=== PATIENT | male | born 1955 | race Caucasian/White ===

== ENCOUNTER 2024-10-27 08:53 | Emergency (ER) | payer MEDICARE ==
[~2024-10-27] VITALS: Ht 167.6 cm; Wt 76.2 kg
[2024-10-27 08:57] VITALS: O2SAT 100
[2024-10-27 08:58] VITALS: TEMP 36.9; O2SAT 96
[2024-10-27 09:48] LABS: HEMATOCRIT. 43.5 % (42.0-52.0); HEMOGLOBIN. 14.2 g/dL (14.0-18.0); MEAN CORPUSCULAR HEMOGLOBIN 29.1 pg (28.0-32.0); MEAN CORPUSCULAR HGB CONC 32.6 g/dL (31.0-37.0); MEAN CORPUSCULAR VOLUME 89.3 fL (80.0-94.0); MEAN PLATELET VOLUME 7.7 fl (7.4-10.4); PLATELET 203 x1000/uL (130-400); RED BLOOD CELL COUNT 4.87 mill/uL (4.7-6.1); RED CELL DISTRIBUTION WIDTH 14.2 % (11.6-14.6)
[2024-10-27 09:54] LABS: DIFFERENTIAL COMMENT 1
[2024-10-27 09:56] LABS: CHLORIDE 102 mEq/L (98-107); POTASSIUM 4.2 mEq/L (3.5-5.1); SODIUM 139 mEq/L (136-145)
[2024-10-27 09:57] LABS: CARBON DIOXIDE 29 mEq/L (21-32)
[2024-10-27 10:02] LABS: CREATININE 0.9 mg/dL (0.6-1.3); GLUCOSE 151 mg/dL (70-105); UREA NITROGEN BLOOD 15 mg/dL (9-23)
[2024-10-27 10:15] VITALS: BP 140/90; PULSE 110; RESP 16
[2024-10-27] MEDS: IBUPROFEN 600MG TABLET PO ONE (10:15)
[2024-10-27 10:23] LABS: PLATELET ESTIMATE NORMAL
[2024-10-27 10:56] LABS: TROPONIN I HIGH SENSITIVITY < 4 ng/L (3.0-53)
== END 2024-10-27 11:41 | disposition home or self-care (01) ==
LOC: ER 08:53
DX: M79.604 Pain in right leg (principal); M79.605 Pain in left leg; E11.9 Type 2 diabetes mellitus without complications; I10 Essential (primary) hypertension; Z98.890 Other specified postprocedural states
CPT/HCPCS: 36415; 71045; 80048; 84484; 85025; 99284